=== PATIENT | female | born 1955 | race Two or more races ===

== ENCOUNTER 2021-11-11 09:27 | Inpatient (IN) | payer SELFPAY ==
[~2021-11-11] VITALS: Ht 157.5 cm; Wt 63.5 kg
--- NOTE | 2021-11-11 09:40 | NUR ---
BIB RA 40 FROM HOME FOR WORSENING FLU SX SINCE SHE SHE TESTED (+) TO COVID 19 2 WEEKS AGO,DECREASED PO INTAKE, N/V,WEAKNESS. RESPIRATION REGULAR AND UNLABORED. DENIES PAIN. ATTACHED TO THE MONITOR. WILL CONTINUE TO MONITOR THE PATIENT.
--- NOTE | 2021-11-11 09:55 | NUR ---
IV LINE IS ESTABLISHED,BLOOD SPECIMEN COLLECTED AND SENT TO THE LAB. THE LINE IS SALINE LOCKED.
[2021-11-11 10:40] LABS: EOSINOPHILS % (AUTO) 0.4 % (0.0-6.0); HEMATOCRIT 44 % (33-45); HEMOGLOBIN 14.7 g/dL (11.5-14.8); LYMPHOCYTES # (AUTO) 1.5 K/uL (0.8-4.8); LYMPHOCYTES % (AUTO) 7.9 % (20.0-44.0); MEAN CORPUSCULAR HGB CONC 34 g/dl (31.0-36.0); MEAN CORPUSCULAR VOLUME 97 fL (82-100); MONOCYTES # (AUTO) 0.8 K/uL (0.1-1.30); MONOCYTES % (AUTO) 4.4 % (2.0-12.0); NEUTROPHILS # (AUTO) 16.1 K/uL (1.8-8.9); NEUTROPHILS % (AUTO) 87.3 % (43.0-81.0); PLATELET COUNT (AUTO) 251 K/uL (150-450); RED BLOOD CELL COUNT(AUTO) 4.52 MIL/uL (4.0-5.2); WHITE BLOOD COUNT (AUTO) 18.4 K/uL (4.3-11.0)
--- NOTE | 2021-11-11 10:51 | NUR ---
URINE COLLECTED AND SENT TO THE LAB
[2021-11-11 11:02] LABS: CALCIUM, SERUM 8.6 mg/dL (8.5-10.1); CARBON DIOXIDE 26 mmol/L (21-32); CHLORIDE 100 mmol/L (98-107); CREATINE KINASE, TOTAL 26 U/L (26-192); CREATININE 0.9 mg/dL (0.6-1.3); GLUCOSE 97 mg/dL (74-106); POTASSIUM 3.2 mmol/L (3.5-5.1); SODIUM SERUM 136 mmol/L (136-145); UREA NITROGEN, BLOOD 13 mg/dL (7-18)
[2021-11-11 11:13] LABS: ALANINE AMINOTRANSFERASE 26 U/L (12-78); ALBUMIN 3.2 g/dL (3.4-5.0); ALKALINE PHOSPHATASE 86 U/L (46-116); ASPARTATE AMINOTRANSFERASE 24 U/L (15-37); BILIRUBIN,TOTAL 0.9 mg/dL (0.2-1.0); TOTAL PROTEIN, SERUM 7.1 g/dL (6.4-8.2)
[2021-11-11] MEDS ORDERED: DEXAMETHASONE SOD PHOSPHATE 10 MG/ML VIAL IV ONE (11:30)
[2021-11-11] MEDS ORDERED: AZITHROMYCIN 500 MG in IV D5W 250 ML IV ONE (11:30)
[2021-11-11] MEDS ORDERED: CEFTRIAXONE 1 G in IV D5W 50 ML IV ONE (11:30)
[2021-11-11 11:37] LABS: C-REACTIVE PROTEIN 8.8 mg/dL (0.0-0.9)
[2021-11-11] MEDS ORDERED: DEXAMETHASONE SOD PHOSPHATE 10 MG/ML VIAL ONE (11:56)
[2021-11-11] MEDS ORDERED: CEFTRIAXONE 1GM BAG (ER ONLY) 50 ML IV ONE (11:56)
[2021-11-11] MEDS ORDERED: LOSA25TA27 PO (12:12)
[2021-11-11 12:22] LABS: BILIRUBIN,URINE NEGATIVE (NEGATIVE); COLOR,URINE YELLOW (YELLOW); LEUKOCYTE ESTERASE ,URINE NEGATIVE (NEGATIVE); NITRITE, URINE NEGATIVE (NEGATIVE); PH,URINE 8.5 (5.0-8.0); PROTEIN,URINE TRACE mg/dl (NEGATIVE); UGLUCOSE NEGATIVE (NEGATIVE); UROBILINOGEN,URINE 0.2 EU/dL (0.2)
[2021-11-11 13:03] LABS: D-DIMER 6.94 mg/L(FEU (0.17-0.50)
[2021-11-11] MEDS ORDERED: IV NS 0.9% 250 ML IV ONE (13:19)
[2021-11-11] MEDS ORDERED: IOHEXOL-350 100 ML VIAL IV ONE (13:19)
--- NOTE | 2021-11-11 13:29 | NUR ---
THE PATIENT IS TAKEN TO CT VIA [facility]
[2021-11-11] MEDS ORDERED: ENOXAPARIN SODIUM 60 MG/0.6 ML DISP.SYRIN SQ ONE (13:30)
--- NOTE | 2021-11-11 13:50 | NUR ---
THE PATIENT IS BACK FROM CT VIA [facility]
--- NOTE | 2021-11-11 14:23 | NUR ---
COVID PCR SWAB DONE AND SENT TO THE LAB
[2021-11-11] MEDS ORDERED: ENOXAPARIN SODIUM 80 MG/0.8 ML DISP.SYRIN SQ ONE (15:06)
[2021-11-11] MEDS ORDERED: ZOLPIDEM TARTRATE 5 MG TABLET PO PRN (17:30)
[2021-11-11] MEDS ORDERED: MAG HYDROX/AL HYDROX/SIMETH 30 ML UDC PO PRN (17:30)
[2021-11-11] MEDS ORDERED: Z GUARD REMEDY 4 OZ OINT TP PRN (17:30)
[2021-11-11] MEDS ORDERED: ONDANSETRON HCL/PF 4 MG/2 ML VIAL IVP PRN (17:30)
[2021-11-11] MEDS ORDERED: MAGNESIUM HYDROXIDE 30 ML UDC PO PRN (17:30)
--- NOTE | 2021-11-11 18:28 | NUR ---
ROOM 113
--- NOTE | 2021-11-11 19:22 | NUR ---
REPORT GIVEN TO NURSE DANITA FOR JAIME
--- NOTE | 2021-11-11 20:36 | NUR ---
FLU SWAB COLLECTED AND SENT TO LAB
--- NOTE | 2021-11-11 20:51 | NUR ---
REPORT GIVEN TO NASIR HOWELL
--- NOTE | 2021-11-11 23:10 | NUR ---
RN NOTE RECEIVED PATIENT FROM ER VIA GURNEY ACCOMPANIED BY 2 ER STAFF, PT IS INDEPENDENT WITH MOBILITY. PT IS AO X 4, SRI LANKAN SPEAKING BUT UNDERSTANDS BENINESE, IN NO SIGN OF ACUTE DISTRESS, RESPIRATIONS EVEN AND UNLABORED, SATURATION AT 97% ON ROOM AIR. COMPREHENSIVE PHYSICAL ASSESSMENT AND PATIENT CARE DONE. NO SKIN ISSUES NOTED. NOTED IV LINE AT LAC 20G, PATENT AND FLUSHING WELL, NO S/S OF INFECTION OR INFILTRATION NOTED. ALL BELONGINGS CHECKED AND LISTED, COSIGNED BY DIOMEDES REED. SAFETY MEASURES AND ISOLATION PRECAUTION IN PLACE, CALL LIGHT WITHIN REACH OF PATIENT, BED ON LOWEST POSITION, SIDE RAILS UP X 2. WILL CONTINUE MONITOR AND ASSESS THROUGHOUT THE SHIFT. WILL CARRY OUT MD ORDERS ACCORDINGLY. TANNERY GUMMER MADE AWARE.
--- NOTE | 2021-11-11 23:15 | NUR ---
PATIENT TRANSFERRED UNDER ACLS
[2021-11-12] VITALS: BP 137/79
[2021-11-12 04:00] VITALS: BP 129/74
--- NOTE | 2021-11-12 06:45 | NUR ---
RN NOTE MEDICAL INSURANCE CLAIMS PROCESSOR AT BEDSIDE
--- NOTE | 2021-11-12 06:48 | NUR ---
RN NOTE TELEPHONE CALL FROM PHARMACY ASKING RE: PT REACTION TO TYLENOL(ACETAMINOPHEN), ASKED PATIENT, STATED SHE IS ABLE TO TAKE TYLENOL, BUT IS ALLERGIC TO [place]CO. RELAYED TO PHARMACIST ON PHONE, SHE ACKNOWLEDGED. AIRCONDITIONING DRAFTING OFFICER HIEU AMBROCIO.
--- NOTE | 2021-11-12 07:52 | NUR ---
network/telecom engineer note patient in bed , all needs attended , alert oriented x3 c\o cough will report to md on tele monitor sr hl intact and flushed well , on lac , bed in lowest and locked position , call light within reach will cont to monitor closely
[2021-11-12 08:00] VITALS: BP 139/85
[2021-11-12] MEDS: DEXAMETHASONE SOD PHOSPHATE 10 MG/ML VIAL IV SCH (08:15)
[2021-11-12] MEDS: PANTOPRAZOLE 40 MG TABLET.DR PO SCH (08:16)
[2021-11-12 08:17] LABS: BASOPHILS % (AUTO) 0.1 % (0.0-2.0); EOSINOPHILS % (AUTO) 0.1 % (0.0-6.0); HEMATOCRIT 42 % (33-45); HEMOGLOBIN 14.2 g/dL (11.5-14.8); LYMPHOCYTES # (AUTO) 0.8 K/uL (0.8-4.8); LYMPHOCYTES % (AUTO) 3.4 % (20.0-44.0); MEAN CORPUSCULAR HGB CONC 34 g/dl (31.0-36.0); MEAN CORPUSCULAR VOLUME 96 fL (82-100); MONOCYTES # (AUTO) 0.9 K/uL (0.1-1.30); MONOCYTES % (AUTO) 3.9 % (2.0-12.0); NEUTROPHILS # (AUTO) 20.6 K/uL (1.8-8.9); NEUTROPHILS % (AUTO) 92.5 % (43.0-81.0); PLATELET COUNT (AUTO) 254 K/uL (150-450); RED BLOOD CELL COUNT(AUTO) 4.36 MIL/uL (4.0-5.2); WHITE BLOOD COUNT (AUTO) 22.2 K/uL (4.3-11.0)
--- NOTE | 2021-11-12 08:34 | NUR ---
VP RHEUMATOLOGY NOTE C\O SLIGHT SOB PLACED ON 2L NC , WILL MONITOR
[2021-11-12] MEDS ORDERED: ENOXAPARIN SODIUM 60 MG/0.6 ML DISP.SYRIN SQ SCH (09:00)
[2021-11-12 09:26] LABS: CALCIUM, SERUM 9.3 mg/dL (8.5-10.1); CREATININE 0.9 mg/dL (0.6-1.3); MAGNESIUM 2.7 mg/dL (1.8-2.4); PHOSPHORUS 3.5 mg/dL (2.5-4.9); POTASSIUM 3.6 mmol/L (3.5-5.1)
--- NOTE | 2021-11-12 10:13 | NUR ---
DEALER ANALYST NOTE DR COSTA AT BEDSIDE UPDATED PATIENT CONDIGN, NOTIFIED THAT PATIENT HAS COUGH WITH ORDER TO GIVE ROBITUSSIN ,ORDER CARRIED OUT
[2021-11-12 10:26] LABS: THYROID STIMULATING HORMONE 0.338 uIU/mL (0.358-3.74)
[2021-11-12 12:00] VITALS: BP 132/83
--- NOTE | 2021-11-12 12:13 | NUR ---
STEVEDORE DOCK NOTE C\O COUGH ROBITUSSIN PO GIVEN
[2021-11-12] MEDS: CEFTRIAXONE 1 G in IV D5W 50 ML IV SCH (12:22)
[2021-11-12] MEDS: GUAIFENESIN/D-METHORPHAN HB 5 ML UDC PO PRN ×2 (12:35→22:56)
--- NOTE | 2021-11-12 15:18 | NUR ---
ATMOSPHERIC SCIENCES PROFESSOR NOTE PT AT BEDSIDE ABLE TO AMBULATE TO BR , ALL NEEDS ATTENDED
[2021-11-12 16:00] VITALS: BP 105/59
[2021-11-12] MEDS: APIXABAN 5 MG TABLET PO SCH (16:37)
--- NOTE | 2021-11-12 18:30 | NUR ---
supervisor telephone clerks note resting comfortable having dinner , all needs attended ,will monitor
--- NOTE | 2021-11-12 19:20 | NUR ---
RN OPENING NOTES RECEIVED PATIENT IN BED, AWAKE, ALERT AND VERBALLY RESPONSIVE, NO SOB NOTED NOT IN DISTRESS, A/O X 4 PT ON ROOM AIR . PATIENT NOTED WITH LAC G#20 IV ACCESS, PATENT INTACT AND FLUSHED WITH NORMAL SALINE. ALL SAFETY PRECAUTION IMPLEMENTED. BED IS AT LOWEST POSITION AND LOCKED. BED ALARM ARMED. CALL LIGHT IS WITHIN REACH. WILL CONTINUE TO MONITOR
[2021-11-12 20:00] VITALS: BP 118/74
[2021-11-13] VITALS: BP 118/71
[2021-11-13 04:00] VITALS: BP 147/77
[2021-11-13] MEDS: ACETAMINOPHEN 325 MG TABLET PO PRN ×2 (04:26→21:51)
--- NOTE | 2021-11-13 04:27 | NUR ---
RN NOTES PATIENT NOTED WITH MILD FEVER 99.4 FAHRENHEIT, COOLING MEASURE PROVIDED, ACETAMINOPHEN GIVEN PER MD'S ORDERED. CONTINUE TO MONITOR.
--- NOTE | 2021-11-13 05:27 | NUR ---
RN NOTES TEMPERATURE RECHECKED AND OBTAINED 98.4 FAHRENHEIT, CONTINUE TO MONITOR.
--- NOTE | 2021-11-13 07:13 | NUR ---
RN OPENING NOTE RECEIVE REPORT FROM LAB INTERN NURSE. PATIENT IN STABLE CONDITION. WILL FOLLOW UP AM LABS AND [facility] ORDERS. PROPER ISOLATION IN PLACE. ALL SAFETY MEASURE IN PLACE. BED ON LOWEST POSITION WITH HO ELEVATED. CALL LIGHT WITHIN REACH. WILL CONTINUE TO MONITOR.
[2021-11-13] MEDS: PANTOPRAZOLE 40 MG TABLET.DR PO SCH (07:21)
--- NOTE | 2021-11-13 07:24 | NUR ---
RN CLOSING NOTES PATIENT REMAIN STABLE THROUGH OUT THE SHIFT, NO SOB NOTED NOT IN DISTRESS, A/O X 4 PT ON ROOM AIR . PATIENT NOTED WITH LAC G#20 IV ACCESS, PATENT INTACT AND FLUSHED WITH NORMAL SALINE. ALL DUE MEDS GIVEN ORDERED. ALL SAFETY PRECAUTION IMPLEMENTED. BED IS AT LOWEST POSITION AND LOCKED. BED ALARM ARMED. CALL LIGHT IS WITHIN REACH. WILL CONTINUE TO MONITOR
[2021-11-13 08:00] VITALS: BP 134/72
[2021-11-13 08:00] LABS: EOSINOPHILS % (AUTO) 0.1 % (0.0-6.0); HEMATOCRIT 38 % (33-45); HEMOGLOBIN 12.9 g/dL (11.5-14.8); LYMPHOCYTES % (AUTO) 4.7 % (20.0-44.0); MEAN CORPUSCULAR HGB CONC 34 g/dl (31.0-36.0); MEAN CORPUSCULAR VOLUME 96 fL (82-100); MONOCYTES # (AUTO) 0.9 K/uL (0.1-1.30); MONOCYTES % (AUTO) 4.5 % (2.0-12.0); NEUTROPHILS # (AUTO) 18.9 K/uL (1.8-8.9); NEUTROPHILS % (AUTO) 90.7 % (43.0-81.0); PLATELET COUNT (AUTO) 278 K/uL (150-450); RED BLOOD CELL COUNT(AUTO) 3.98 MIL/uL (4.0-5.2); WHITE BLOOD COUNT (AUTO) 20.9 K/uL (4.3-11.0)
[2021-11-13] MEDS: DEXAMETHASONE SOD PHOSPHATE 10 MG/ML VIAL IV SCH (08:19)
[2021-11-13] MEDS: LOSARTAN POTASSIUM 25 MG TABLET PO SCH (08:22)
[2021-11-13] MEDS: APIXABAN 5 MG TABLET PO SCH ×2 (08:23→16:53)
[2021-11-13 09:29] LABS: CALCIUM, SERUM 8.4 mg/dL (8.5-10.1); MAGNESIUM 2.3 mg/dL (1.8-2.4); PHOSPHORUS 3.4 mg/dL (2.5-4.9); POTASSIUM 3.8 mmol/L (3.5-5.1)
[2021-11-13] MEDS: CEFTRIAXONE 1 G in IV D5W 50 ML IV SCH (11:01)
[2021-11-13 12:00] VITALS: BP 118/73
[2021-11-13] MEDS: GUAIFENESIN/D-METHORPHAN HB 5 ML UDC PO PRN ×2 (13:07→19:43)
[2021-11-13 16:00] VITALS: BP 123/68
--- NOTE | 2021-11-13 19:44 | NUR ---
RN CLOSING NOTE PATIENT REMAIN IN STABLE CONDITION WITH NO SIGN OF DISTRESS TROUGH OUT SHIFT. REMAIN ON NC PRN AT 2L/MIN. O2 SAT 100%. PATIENT AMBULATE TO THE RESTROOM. TOOK ALL MEDICATION DURING SHIFT. REPOSITION INDEPENDENTLY IN BED. PROPER ISOLATION IN PLACE. ALL SAFETY MEASURE IN PLACE. BED ON LOWEST POSITION WITH HOB ELEVATED AND 3 SIDE RAIL UP. CALL LIGHT WITHIN REACH. REPORT WAS GIVEN TO WEAVE DEFECT CHARTING CLERK NURSE.
[2021-11-13 20:00] VITALS: BP 102/79
--- NOTE | 2021-11-13 21:51 | NUR ---
RN NOTES PATIENT NOTED WITH LOW GRADE FEVER 99.3 FAHRENHEIT, COOLING MEASURE PROVIDED, ADMINISTER ACETAMINOPHEN 650MG PER MD'S ORDERED. WILL CONTINUE TO MONITOR.
--- NOTE | 2021-11-13 22:21 | NUR ---
RN NOTES TEMPERATURE RECHECKED OBTAINED 98.5 FAHRENHEIT, WILL CONTINUE TO MONITOR THROUGH OUT THE SHIFT
[2021-11-14] VITALS: BP 140/89
[2021-11-14 04:00] VITALS: BP 139/61
--- NOTE | 2021-11-14 07:32 | NUR ---
RN CLOSING NOTES PATIENT REMAIN STABLE THROUGH OUT THE SHIFT, NO SOB NOTED NOT IN DISTRESS, A/O X 4 PT ON ROOM AIR . PATIENT NOTED WITH LAC G#20 IV ACCESS, PATENT INTACT AND FLUSHED WITH NORMAL SALINE. ALL SAFETY PRECAUTION IMPLEMENTED. BED IS AT LOWEST POSITION AND LOCKED. BED ALARM ARMED. CALL LIGHT IS WITHIN REACH. WILL CONTINUE TO MONITOR
--- NOTE | 2021-11-14 07:45 | NUR ---
CARE PROCESS MANAGER OPENING NOTES RECEIVED PATIENT IN BED, AWAKE, ALERT AND VERBALLY RESPONSIVE, NO SOB NOTED NOT IN DISTRESS, A/O X 4 PT ON ROOM AIR . PATIENT NOTED WITH LAC G#20 IV ACCESS, PATENT AND INTACT AND FLUSHED WITH NORMAL SALINE. ALL SAFETY PRECAUTION IMPLEMENTED. BED IS AT LOWEST POSITION AND LOCKED. BED ALARM ARMED. CALL LIGHT IS WITHIN REACH. WILL CONTINUE TO MONITOR
[2021-11-14 08:00] VITALS: BP_SYST 131; BP_SYST 139; BP_DIAS 61; BP_DIAS 79
[2021-11-14 08:34] LABS: EOSINOPHILS % (AUTO) 0.1 % (0.0-6.0); HEMATOCRIT 38 % (33-45); HEMOGLOBIN 12.8 g/dL (11.5-14.8); LYMPHOCYTES # (AUTO) 0.9 K/uL (0.8-4.8); LYMPHOCYTES % (AUTO) 5.9 % (20.0-44.0); MEAN CORPUSCULAR HGB CONC 34 g/dl (31.0-36.0); MEAN CORPUSCULAR VOLUME 96 fL (82-100); MONOCYTES # (AUTO) 0.8 K/uL (0.1-1.30); MONOCYTES % (AUTO) 4.9 % (2.0-12.0); NEUTROPHILS # (AUTO) 14.4 K/uL (1.8-8.9); NEUTROPHILS % (AUTO) 89.1 % (43.0-81.0); PLATELET COUNT (AUTO) 285 K/uL (150-450); RED BLOOD CELL COUNT(AUTO) 3.93 MIL/uL (4.0-5.2); WHITE BLOOD COUNT (AUTO) 16.1 K/uL (4.3-11.0)
[2021-11-14] MEDS: APIXABAN 5 MG TABLET PO SCH ×2 (08:39→16:30)
[2021-11-14] MEDS: LOSARTAN POTASSIUM 25 MG TABLET PO SCH (08:40)
[2021-11-14] MEDS: DEXAMETHASONE SOD PHOSPHATE 10 MG/ML VIAL IV SCH (08:40)
[2021-11-14] MEDS: PANTOPRAZOLE 40 MG TABLET.DR PO SCH (08:40)
[2021-11-14 08:44] LABS: CALCIUM, SERUM 8.5 mg/dL (8.5-10.1); CREATININE 0.8 mg/dL (0.6-1.3); MAGNESIUM 2.2 mg/dL (1.8-2.4); PHOSPHORUS 3.6 mg/dL (2.5-4.9); POTASSIUM 3.8 mmol/L (3.5-5.1)
[2021-11-14] MEDS: GUAIFENESIN/D-METHORPHAN HB 5 ML UDC PO PRN ×2 (10:06→23:41)
[2021-11-14] MEDS: CEFTRIAXONE 1 G in IV D5W 50 ML IV SCH (11:46)
[2021-11-14 12:00] VITALS: BP 124/78
--- NOTE | 2021-11-14 12:00 | NUR ---
television inspector note rounds made not in distress ,all needs attended will monitor
[2021-11-14 16:00] VITALS: BP 122/95
--- NOTE | 2021-11-14 18:32 | NUR ---
EDGER TECHNICIAN CLOSING NOTES PATIENT REMAINED STABLE THROUGH OUT THE SHIFT, NO SOB NOTED NOT IN DISTRESS, A/O X 4 PT ON ROOM AIR . PATIENT NOTED WITH LAC G#20 IV ACCESS, PATENT INTACT AND FLUSHED WELL WITH NORMAL SALINE. ALL SAFETY PRECAUTION IMPLEMENTED. BED IS AT LOWEST POSITION AND LOCKED. BED ALARM ARMED. CALL LIGHT IS WITHIN REACH. WILL ENDORSE TO DIRECTOR OF PRIMARY CARE NURSE.
--- NOTE | 2021-11-14 19:30 | NUR ---
RN OPENING NOTES RECEIVED PATIENT IN BED SITTING POSITION AWAKE, ALERT, ORIENTED X4, AND VERBALLY RESPONSIVE, NO SOB NOTED, BREATHING EVEN AND UNLABORED. PT ON ROOM AIR . IV ACCESS ON LAC G#20 PATENT AND INTACT. NO S/S OF INFILTRATIONS. ALL SAFETY PRECAUTION IN PLACE. BED IS AT LOWEST POSITION AND LOCKED. BOTH SIDE RAILS UP. CALL LIGHT IS WITHIN REACH. WILL CONTINUE TO MONITOR
[2021-11-14 20:00] VITALS: BP 127/76
--- NOTE | 2021-11-14 23:41 | NUR ---
RN NOTES: PT C/O NON-PRODUCTIVE COUGH. ROBITUSSIN 5 ML GIVEN PRN ORDER AND PT TOLERATED WELL. WILL CONTINUE TO MONITOR
[2021-11-15] VITALS: BP 128/75
[2021-11-15 04:00] VITALS: BP 143/88
--- NOTE | 2021-11-15 06:47 | NUR ---
RN CLOSING NOTES PATIENT IN BED SITTING POSITION, AWAKE, ALERT, ORIENTED X4, AND VERBALLY RESPONSIVE, NO SOB NOTED, BREATHING EVEN AND UNLABORED. PT ON ROOM AIR. 96%. IV ACCESS ON LAC G#20 PATENT AND INTACT. NO S/S OF INFILTRATIONS. NO C/O COUGH AT THIS MOMENT. ALL SAFETY PRECAUTION IN PLACE. BED IS AT LOWEST POSITION AND LOCKED. BOTH SIDE RAILS UP. CALL LIGHT IS WITHIN REACH. WILL ENDORSE TO MORNING SHIFT NURSE.
[2021-11-15 07:11] LABS: BASOPHILS % (AUTO) 0.2 % (0.0-2.0); EOSINOPHILS % (AUTO) 0.1 % (0.0-6.0); HEMATOCRIT 39 % (33-45); HEMOGLOBIN 13.4 g/dL (11.5-14.8); LYMPHOCYTES # (AUTO) 1.1 K/uL (0.8-4.8); LYMPHOCYTES % (AUTO) 10.3 % (20.0-44.0); MEAN CORPUSCULAR HGB CONC 35 g/dl (31.0-36.0); MEAN CORPUSCULAR VOLUME 95 fL (82-100); MONOCYTES # (AUTO) 0.7 K/uL (0.1-1.30); MONOCYTES % (AUTO) 7.1 % (2.0-12.0); NEUTROPHILS # (AUTO) 8.6 K/uL (1.8-8.9); NEUTROPHILS % (AUTO) 82.3 % (43.0-81.0); PLATELET COUNT (AUTO) 299 K/uL (150-450); RED BLOOD CELL COUNT(AUTO) 4.06 MIL/uL (4.0-5.2); WHITE BLOOD COUNT (AUTO) 10.4 K/uL (4.3-11.0)
[2021-11-15 07:28] LABS: CALCIUM, SERUM 9.1 mg/dL (8.5-10.1); CREATININE 0.9 mg/dL (0.6-1.3); POTASSIUM 3.6 mmol/L (3.5-5.1)
[2021-11-15] MEDS: PANTOPRAZOLE 40 MG TABLET.DR PO SCH (07:35)
--- NOTE | 2021-11-15 07:45 | NUR ---
RN OPEN NOTES PATIENT RECEIVED IN BED, AWAKE, ALERT, ORIENTED X4, VERBALLY RESPONSIVE, NO SOB NOTED, BREATHING EVEN AND UNLABORED. PT IS ON ROOM AIR. 96% PRN, IV ACCESS ON LAC G#20 PATENT AND INTACT. NO S/S OF INFILTRATIONS. NO C/O COUGH AT THIS MOMENT. ALL SAFETY PRECAUTION IN PLACE. BED IS AT LOWEST POSITION AND LOCKED. CALL LIGHT IS WITHIN REACH. WILL CONTINUE TO MONITOR
[2021-11-15 08:00] VITALS: BP 120/81
[2021-11-15] MEDS: APIXABAN 5 MG TABLET PO SCH ×2 (08:27→16:34)
[2021-11-15] MEDS: DEXAMETHASONE SOD PHOSPHATE 10 MG/ML VIAL IV SCH (08:28)
[2021-11-15] MEDS: LOSARTAN POTASSIUM 25 MG TABLET PO SCH (08:28)
[2021-11-15] MEDS: CEFTRIAXONE 1 G in IV D5W 50 ML IV SCH (11:07)
[2021-11-15 12:00] VITALS: BP 116/49
[2021-11-15 16:00] VITALS: BP 117/65
--- NOTE | 2021-11-15 18:39 | NUR ---
RN CLOSING NOTES PATIENT REMAINS IN BED, AWAKE, ALERT, ORIENTED X4, VERBALLY RESPONSIVE, NO SOB NOTED, BREATHING EVEN AND UNLABORED. PT IS ON ROOM AIR. 96% AND 2L NC PRN, IV ACCESS ON LAC G#20 PATENT AND INTACT. NO S/S OF INFILTRATIONS. NO C/O COUGH AT THIS MOMENT. NO SIGNIFICANT CHANGES DURING SHIFT ALL NEEDS MET, SAFETY PRECAUTION AND ISOLATION IN PLACE. BED IS AT LOWEST POSITION AND LOCKED. CALL LIGHT WITHIN REACH. WILL ENDORSE TO INCIDENT RESPONSE CONSULTANTRESIDENT CARE ASSOCIATE
--- NOTE | 2021-11-15 19:40 | NUR ---
RN OPENING NOTES RECEIVED PATIENT IN BED SITTING POSITION AWAKE, ALERT, ORIENTED X4, AND VERBALLY RESPONSIVE, NO SOB, BREATHING EVEN AND UNLABORED. PT ON ROOM AIR AND ALSO HAS PRN ORDER FOR 2L VIA N/C. IV ACCESS ON LAC G#20 PATENT AND INTACT. NO S/S OF INFILTRATIONS. NO C/O PAIN OR DISCOMFORT. NO ACUTE DISTRESS. ALL SAFETY PRECAUTION IN PLACE. BED IS AT LOWEST POSITION AND LOCKED. BOTH SIDE RAILS UP. CALL LIGHT IS WITHIN REACH. WILL CONTINUE TO MONITOR
[2021-11-15 20:00] VITALS: BP 149/84
[2021-11-16] VITALS: BP 145/76
[2021-11-16] MEDS: GUAIFENESIN/D-METHORPHAN HB 5 ML UDC PO PRN (00:15)
--- NOTE | 2021-11-16 00:44 | NUR ---
RN NOTES: PT C/O NON-PRODUCTIVE COUGH. ROBITUSSIN 5 ML GIVEN PRN ORDER AND PT TOLERATED WELL. WILL CONTINUE TO MONITOR
[2021-11-16 04:00] VITALS: BP 143/75
--- NOTE | 2021-11-16 06:39 | NUR ---
RN CLOSING NOTES: PATIENT IN BED, SLEEPING BUT EASILY AROUSABLE, ALERT, ORIENTED X4, AND VERBALLY RESPONSIVE, NO C/O SOB AT THIS MOMENT. BREATHING EVEN AND UNLABORED. PT ON ROOM AIR, O2 SAT 99%. AND HAS PRN ORDER FOR 2L VIA N/C. IV ACCESS ON LAC #20G PATENT AND INTACT. NO S/S OF INFILTRATIONS. NO C/O PAIN OR DISCOMFORT. NO ACUTE DISTRESS. NO C/O COUGH AT THIS MOMENT. ALL SAFETY PRECAUTION IN PLACE. BED IN LOWEST POSITION AND LOCKED. BOTH SIDE RAILS UP. PLACE CALL LIGHT IS WITHIN REACH. WILL ENDORSE TO MORNING SHIFT NURSE.
[2021-11-16 08:00] VITALS: BP 128/88
--- NOTE | 2021-11-16 08:00 | NUR ---
RN OPEN NOTES: PATIENT RECEIVED IN BED, AWAKE, ALERT AND ORIENTED X4, AND VERBALLY RESPONSIVE, NO C/O SOB AT THIS MOMENT. BREATHING EVEN AND UNLABORED. PT ON ROOM AIR, O2 SAT 99%. AND HAS PRN ORDER FOR 2L VIA N/C. IV ACCESS ON LAC #20G PATENT AND INTACT. NO S/S OF INFILTRATIONS. NO C/O PAIN OR DISCOMFORT. NO ACUTE DISTRESS. NO C/O COUGH AT THIS MOMENT. ALL SAFETY PRECAUTION IN PLACE. BED IN LOWEST POSITION AND LOCKED. BOTH SIDE RAILS UP. PLACE CALL LIGHT IS WITHIN REACH. WILL CONTINUE TO MONITOR
[2021-11-16] MEDS: APIXABAN 5 MG TABLET PO SCH ×2 (08:07→16:34)
[2021-11-16] MEDS: PANTOPRAZOLE 40 MG TABLET.DR PO SCH (08:07)
[2021-11-16] MEDS: DEXAMETHASONE SOD PHOSPHATE 10 MG/ML VIAL IV SCH (08:09)
[2021-11-16] MEDS: LOSARTAN POTASSIUM 25 MG TABLET PO SCH (08:09)
[2021-11-16 12:00] VITALS: BP 118/58
[2021-11-16 16:00] VITALS: BP 107/64
--- NOTE | 2021-11-16 18:42 | NUR ---
RN CLOSING NOTES: PATIENT REMAINS IN BED, AWAKE, ALERT AND ORIENTED X4, AND VERBALLY RESPONSIVE, NO C/O SOB AT THIS MOMENT. BREATHING EVEN AND UNLABORED. PT ON ROOM AIR, O2 SAT 99%. AND HAS PRN ORDER FOR 2L VIA N/C. IV ACCESS ON LAC #20G PATENT AND INTACT. NO S/S OF INFILTRATIONS. NO C/O PAIN OR DISCOMFORT. NO ACUTE DISTRESS. NO C/O COUGH AT THIS MOMENT. ALL SAFETY PRECAUTION IN PLACE. BED IN LOWEST POSITION AND LOCKED. BOTH SIDE RAILS UP. PLACE CALL LIGHT IS WITHIN REACH. PROBABLY DISCHARGE TOMORROW WILL ENDORSE TO [employer] MANAGER
[2021-11-16 20:00] VITALS: BP_SYST 150; BP_SYST 151; BP_DIAS 74; BP_DIAS 85
--- NOTE | 2021-11-16 20:47 | NUR ---
RECEIVED REPORT FOR PATIENT. PATIENT AOx4, GREEK SPEAKING. PATIENT STABLE.
[2021-11-17] VITALS: BP 135/80
[2021-11-17 04:00] VITALS: BP 148/86
--- NOTE | 2021-11-17 06:51 | NUR ---
RN CLOSING NOTES PT IN BED, AWAKE. AOx34, ABLE TO MAKE NEEDS KNOWN. ON 4L NC AND TOLERATING WELL/. NO SOB NOTED. NO S/SX OF RESPIRATORY DISTRESS NOTED. TELE MONITOR DETECTS SR IN 70S. IV ACCESS IN MAXI MIDLINE #18. IV IS INTACT, PATENT, AND FLUSHING WELL. SAFETY PRECAUTIONS IN PLACE: BED IN LOWEST, LOCKED POSITION, SIDERAILS UP X2, AND BRAKES ON. TABLE AND CALL LIGHT WITHIN REACH. WILL CONTINUE TO MONITOR. Addendum: 11/17/21 at 0653 by JUAN ALBERTO COELHO RN RN CLOSING NOTES PT IN BED, AWAKE. AOx4, ABLE TO MAKE NEEDS KNOWN. ON RA AND TOLERATING WELL/. NO SOB NOTED. NO S/SX OF RESPIRATORY DISTRESS NOTED. TELE MONITOR DETECTS SR IN 80S. IV ACCESS IN LAC #20. IV IS INTACT, PATENT, AND FLUSHING WELL. ALL NEEDS MET. PT KEPT CLEAN AND DRY. SAFETY PRECAUTIONS IN PLACE: BED IN LOWEST, LOCKED POSITION, SIDERAILS UP X2, AND BRAKES ON. TABLE AND CALL LIGHT WITHIN REACH. WILL ENDORSE TO ONCOMING SHIFT FOR JAIME. CORRECT NOTE
[2021-11-17 08:00] VITALS: BP 148/86
[2021-11-17] MEDS: PANTOPRAZOLE 40 MG TABLET.DR PO SCH (08:18)
[2021-11-17] MEDS: LOSARTAN POTASSIUM 25 MG TABLET PO SCH (08:18)
[2021-11-17] MEDS: DEXAMETHASONE SOD PHOSPHATE 10 MG/ML VIAL IV SCH (08:19)
[2021-11-17] MEDS: APIXABAN 5 MG TABLET PO SCH (08:21)
[2021-11-17 12:00] VITALS: BP 125/81
== END 2021-11-17 15:37 | disposition home or self-care (01) | DRG 177 ==
LOC: ER 09:47 → TRANSITION 16:11 → TELE1 18:38
PROVIDERS: ADMIT Student in an Organized Health Care Education/Training Program; ATTEND Nurse Practitioner Acute Care
DX: U07.1 COVID-19 (principal); J12.82 Pneumonia due to coronavirus disease 2019; J96.01 Acute respiratory failure with hypoxia; J15.9 Unspecified bacterial pneumonia; E44.1 Mild protein-calorie malnutrition; D68.59 Other primary thrombophilia; J98.11 Atelectasis; G90.8 Other disorders of autonomic nervous system; I10 Essential (primary) hypertension; Z88.6 Allergy status to analgesic agent; Z88.5 Allergy status to narcotic agent; Z79.899 Other long term (current) drug therapy; Z88.1 Allergy status to other antibiotic agents; K59.00 Constipation, unspecified; Z79.01 Long term (current) use of anticoagulants; E87.6 Hypokalemia
CPT/HCPCS: 36415; 71045-TC; 74018; 80048-TC; 80053-TC; 80061-TC; 82550-TC; 83605-TC; 83615-TC; 83735-TC; 83880; 84100-TC; 84439-TC; 84443-TC; 84484-TC; 85025-TC; 85378-TC; 85730-TC; 86140-TC; 87040-TC; 87081-TC; 93307-TC; 97112-TC; 97116-TC; G0378; J0456; J0696; J1100; J1650; J7050; J7060; Q9967; U0003